=== PATIENT | female | born 1945 | race Caucasian/White ===

== ENCOUNTER → 2016-06-24 | Outpatient (CLI) | payer OTHER, MEDICARE | LOC: BMCIMAGING 14:41 | PROVIDERS: ATTEND Internal Medicine | DX: J40 Bronchitis, not specified as acute or chronic (principal); R91.1 Solitary pulmonary nodule ==

== ENCOUNTER → 2016-06-27 | Outpatient (CLI) | payer OTHER, MEDICARE | LOC: CIMAGING 11:18 | PROVIDERS: ATTEND Internal Medicine | DX: J98.4 Other disorders of lung (principal) | CPT/HCPCS: 71250-PO ==

== ENCOUNTER → 2016-11-05 | Outpatient (CLI) | payer OTHER, MEDICARE | LOC: BMCIMAGING 10:08 | PROVIDERS: ATTEND Obstetrics & Gynecology | DX: Z13.820 Encounter for screening for osteoporosis (principal); C50.911 Malignant neoplasm of unspecified site of right female breast; M85.89 Other specified disorders of bone density and structure, multiple sites ==